=== PATIENT | male | born 1990 | race Caucasian/White ===

== ENCOUNTER 2017-02-06 11:56 | Emergency (ER) | payer SELFPAY ==
[~2017-02-06] VITALS: Ht 170.2 cm; Wt 83.0 kg
[2017-02-06 11:57] VITALS: BP 130/89; PULSE 89; RESP 16; TEMP 98.4; O2SAT 98
[2017-02-06] MEDS ORDERED: LIDOCAINE 1%/EPINEPHrine 1:100,000 SOLN 20 ML VIAL INFIL ONE (12:15)
--- NOTE | 2017-02-06 12:41 | PD ---
HPI Chief Complaint: Laceration/Skin Injury Time Seen by Provider: 12:03 Travel History International Travel<30 days: No Contact w/Intl Traveler<30days: No Traveled to known affect area: No History of Present Illness HPI 26 year old male patient presents to the emergency department for evaluation of a laceration he sustained to his left leg approx 30 mins prior to arrival. He was at work trying to cut down a door way with a chain saw when the event transpired. Patient has been ambulatory subsequent. He denies any chest pain, shortness of breath, nausea, vomiting, diarrhea, abdominal pain. Patient states he is UTD on tetanus. [facility] Past Medical History Medical History: Denies Significant Hx Past Surgical History Surgical History: No Previous Surgery Social History Alcohol Use: Yes (socially weekends) Tobacco Use: Yes Substance Use: No Allergies-Medications (Allergen,Severity, Reaction): Coded Allergies: No Known Allergies (Unverified , 02/06/17) Reported Meds & Prescriptions Reported Meds & Active Scripts Active No Active Prescriptions or Reported Medications Review of Systems Except as stated in HPI: all other systems reviewed are Neg Physical Exam Narrative GENERAL: Well-nourished, well-developed 26 year old male patient in no acute distress. Nontoxic appearing. SKIN: 6 cm large, deep laceration to the distal anterior left leg. HEAD: Normocephalic. Atraumatic. EYES: No scleral icterus. No injection or drainage. NECK: Supple, trachea midline. No JVD or lymphadenopathy. CARDIOVASCULAR: Regular rate and rhythm without murmurs, gallops, or rubs. Pedal pulses +2 bilaterally. RESPIRATORY: Breath sounds equal bilaterally. No accessory muscle use. GASTROINTESTINAL: Abdomen soft, non-tender, nondistended. MUSCULOSKELETAL: Full range of motion noted in the left leg, knee and foot. BACK: Nontender without obvious deformity. No CVA tenderness. Data Data Last Documented VS Vital Signs Date Time Temp Pulse Resp B/P (MAP) Pulse Ox O2 Delivery O2 Flow Rate FiO2 02/06/17 11:57 98.4 89 16 130/89 (103) 98 Orders Orders Femur (Ap & Lat/2vws) (02/06/17 12:14) Lidocai-Epi 1%-1:100,000 Inj (Xylocaine- (02/06/17 12:15) Morphine Inj (Morphine Inj) (02/06/17 14:15) [facility] [place] Medical Decision Making Medical Screen Exam Complete: Yes Emergency Medical Condition: Yes Differential Diagnosis Differential diagnosis includes but not limited to laceration, cellulitis, tendon injury, ligament injury Narrative Course Patient is up-to-date on his tetanus. X-ray of the femur shows no foreign body or bony injury. Laceration is repaired. Please see my procedural narrative. Patient will be discharged home with instructions to keep the area clean and dry , return in 14 days to get the sutures removed or return sooner with any signs or symptoms of infection. Patient is discharged home at this time. Procedures Procedure Narrative LACERATION LOCATION: Left distal anterior thigh just proximal to the knee LENGTH: 6 cm NUMBER OF STITCHES/KATERINA: 50.0 Vicryl and 6 x3. 0 Prolene REPAIR: The area of the laceration was prepped with Betadine and sterilely draped. The laceration was infiltrated with 1% lidocaine with epi. The wound was copiously irrigated and explored without evidence of foreign body, tendon injury or neurovascular injury. The wound was closed using 50.0 Vicryl and 6 x3. 0 Prolene, the Vicryl sutures are subcutaneous buried in the Prolene are simple interrupted. This was a double layer repair. A sterile dressing was applied. The patient was advised to keep the dressing clean and dry. Patient tolerated the procedure well. Diagnosis Primary Impression: Laceration of leg Qualified Codes: S81.812A - Laceration without foreign body, left lower leg, initial encounter Referrals: Primary Care Physician Patient Instructions: Acute Wound Care (GEN), General Instructions Additional Instructions: Please return to emergency department if your symptoms return or worsen. Follow up with your primary care provider. Take medications as prescribed. Keep wound clean and dry. Return in 14 days to get sutures removed, return sooner with any signs or symptoms of infection such as fevers, increasing redness, increasing pain, foul- smelling drainage. Med/Other Pt SpecificInfo: Prescription(s) given Scripts No Active Prescriptions or Reported Meds Disposition: 01 DISCHARGE HOME Condition: Stable Odilia Schwarz HUBER Feb 06, 2017 12:41
--- NOTE | 2017-02-06 13:32 | RADRPT ---
EXAM DATE/TIME: 02/06/2017 12:54 [facility] COMPARISON: No previous studies available for comparison. INDICATIONS : Left femur pain after saw went into distal femur. MEDICAL HISTORY : None. SURGICAL HISTORY : None. ENCOUNTER: Initial ACUITY: 1 day PAIN SCORE: 10/10 LOCATION: Left distal femur. FINDINGS: Two view examination of the left femur demonstrates no evidence of fracture or dislocation. Bony min eralization is normal. There is no evidence of radiopaque foreign body. Soft tissue injury is noted. CONCLUSION: No evidence of acute bony injury or radiopaque foreign body Suraj Espana MD on February 06, 2017 at 13:19 Board Certified Radiologist. This report was verified electronically.
[2017-02-06] MEDS ORDERED: MORPHINE SULFATE 4 MG/ML INJ IM ONE (14:15)
[2017-02-06] MEDS ORDERED: TRAM50TA PO (14:54)
[2017-02-06 16:04] VITALS: BP 135/71
== END 2017-02-06 16:29 | disposition home or self-care (01) ==
LOC: NEPC 11:56
DX: S81.812A Laceration without foreign body, left lower leg, initial encounter (principal); W29.3XXA Contact with powered garden and outdoor hand tools and machinery, initial encounter; Y93.H3 Activity, building and construction; Y99.0 Civilian activity done for income or pay
CPT/HCPCS: 12032; 73552; 96372; 99284; J2270